=== PATIENT | female | born 1985 | race Hispanic/Latino ===

== ENCOUNTER 2022-10-01 16:15 | Emergency (ER) | payer OTHER ==
[~2022-10-01] VITALS: Ht 154.9 cm; Wt 68.0 kg
[2022-10-01] MEDS ORDERED: CEPHALEXIN500 MG PO ×2 (17:54→20:07)
[2022-10-01] MEDS ORDERED: ULTRAM 50MG50 MG PO (17:55)
== END 2022-10-01 18:01 | disposition home or self-care (01) ==
LOC: ER 17:03
DX: S81.012A Laceration without foreign body, left knee, initial encounter (principal); M25.571 Pain in right ankle and joints of right foot; F41.9 Anxiety disorder, unspecified; J45.909 Unspecified asthma, uncomplicated; W18.39XA Other fall on same level, initial encounter; Y93.64 Activity, baseball; Y92.320 Baseball field as the place of occurrence of the external cause
CPT/HCPCS: 99284